=== PATIENT | female | born 2000 | race Caucasian/White ===

== ENCOUNTER 2025-04-06 18:49 | Inpatient (IN) ==
[2025-04-06 19:28] LABS: Hematocrit (blood only) 36.5 % (37.0-47.0); Hemoglobin 11.9 g/dl (12.0-16.0); Immature Granulocytes # (auto) 0.05 K/uL (0.01-0.20); Immature Granulocytes % (auto) 0.4 %; Mean Corpuscular Hemoglobin 27.9 pg (25.0-34.0); Mean Corpuscular Volume 85.5 fL (80.0-100.0); Platelet Count 227 K/uL (130-400); RDW Standard Deviation 41.3 fL (36.4-46.3); Red Blood Count 4.27 M/uL (4.20-5.40); White Blood Count 13.26 K/ul (4.8-10.8)
--- NOTE | 2025-04-06 19:42 | Emergency Department Note ---
Impression & Plan Hydronephrosis, Ureteral stone, Vomiting, Failure of outpatient treatment ED Provider Note NAME: VICTORINO DIMAS AGE: 25 SEX: F : 2000 ARRIVES VIA: Walk-In INFORMANT: [Patient][family] ED PROVIDER(S): [Morgan Avina MD] CHIEF COMPLAINT: Kidney pain HISTORY OF PRESENT ILLNESS: The patient is a 25-year-old female who was in our ED earlier today and diagnosed with a right ureteral stone. Her symptoms seemed controlled, there was no urinary infection. She was discharged home with medications for her symptoms. Patient states that despite the meds that she was prescribed, she is still vomiting, the pain is unbearable. She presents back for reevaluation. There has been no fever, no cough or cold or congestion. Her pain is similar to how it was earlier today when she first presented. She feels the pain primarily in the right flank with a slight radiation forward. PMHx/PSHx/Social Hx: See Below PHYSICAL EXAM: GENERAL: Patient is in mild distress from pain. HEENT: No acute trauma, normocephalic atraumatic, mucous membranes moist, no nasal congestion. NECK: No stridor, no adenopathy, no meningismus, trachea is midline. LUNGS: Clear to auscultation bilaterally, no wheeze, no rhonchi, breath sounds equal. HEART: Without murmurs gallops or rubs, regular rate and rhythm. ABDOMEN: Soft, nontender, no peritonitis. EXTREMITIES: No cyanosis, full range of motion of all the joints without pain or difficulty. NEUROLOGIC: Oriented x 3, no acute motor or sensory deficits, no focal weakness. SKIN: No jaundice, no diaphoresis. Back: Very mild right flank discomfort to percussion. DIFFERENTIAL DIAGNOSIS: Renal colic, UTI, hydronephrosis, dehydration, failed outpatient management, among others. EMERGENCY DEPARTMENT PROCEDURES: MEDICAL DECISION MAKING: There is a mild leukocytosis, this could be from infection or just her pain and vomiting. There was no worrisome anemia. There was a normal platelet count. No bandemia. No renal failure or significant electrolyte abnormality. No concerning liver enzyme elevation. testing was negative. Urinalysis showed ketones consistent with dehydration, some red blood cells were seen, no signs of infection. Looking at her CT and ultrasound imaging from earlier today, she does have a right sided ureteral stone with hydronephrosis. The patient received IV Dilaudid, IV Toradol, IV Zofran, IV Phenergan and IV saline. She is feeling improved. The patient presents with vomiting and flank pain. She has a right sided ureteral stone and she is not tolerating the pain outpatient. The medications prescribed earlier today are not controlling her symptoms. The patient is in need of a hospital stay, hydration, pain control and potential urology consult. I spoke with the patient and her mother, I spoke with case management. The on- call hospitalist was consulted. Prior/Outside records/notes reviewed: Today's ED visit note describing her presentation, findings and outpatient plan. Imaging/x-ray results per my interpretation: Chronic Medical/Social conditions affecting care: None Care/Management discussed with: Case management, the on-call hospitalist. Level of care consideration(s): After review of the information above and other included data: --I believe the patient requires escalation of care to admission DISPOSITION: Admission Past Med/Surg History Problem List Failure of outpatient treatment (Acute) Vomiting (Acute) Ureteral stone (Acute) Hydronephrosis (Acute) Calculus of kidney (Acute) Flank Pain (Acute) Dizziness (Acute) Left shoulder pain (Acute) Nausea (Acute) Medical History Dyslipidemia Mitral valve prolapse Surgical History [place] teeth extracted Family History Father Dyslipidemia Other Cancer Social History Smoking Status: Never smoker Hx Substance Use: No Preferred Language: South African Feels Safe at Home: Yes Allergies Allergies Allergy/AdvReac Type Severity Reaction Status Date / Time nickel AdvReac Intermediate red/itchy Unverified 04/06/25 20:40 morphine AdvReac Mild Nausea Unverified 04/06/25 20:40 codeine AdvReac Unknown Nausea and Verified 04/06/25 20:40 stomach pain fentanyl AdvReac Unknown Nausea and Verified 04/06/25 20:40 stomach pain Home Meds Home Medications Medication Instructions Recorded Confirmed pravastatin 20 mg tablet 20 mg PO HS 10/29/20 04/06/25 fluticasone propionate 50 2 spray intranasal DAILY PRN 04/06/25 04/06/25 mcg/actuation nasal allergies spray,suspension (Flonase Allergy Relief) Previous Rx's Medication Instructions Recorded ondansetron 4 mg disintegrating 4 mg PO Q8H PRN nausea and 04/06/25 tablet vomiting 5 days #15 tabs oxycodone 5 mg tablet 5 mg PO Q6H PRN pain #12 tabs 04/06/25 tamsulosin 0.4 mg capsule (Flomax) 0.4 mg PO DAILY #14 caps 04/06/25 Results & Data (ED) Vital Signs Vital Signs - 24 hr 04/06/25 18:55 Temperature 37.1 C Temperature Source Temporal Artery Scan Pulse Rate 94 H Respiratory Rate 19 Respiratory Effort / Characteristics Non-Labored Spontaneous Respiratory Depth Normal Respiratory Pattern Regular Blood Pressure 119/63 Blood Pressure Mean 81 Pulse Oximetry 99 Oxygen Delivery Method Room Air Sepsis Recent Fever Within 48 Hours No Sepsis New/Unexplained Change in Mental Status N/A Sepsis Action Taken by Nursing No Action Required Home Medications Current Medication List: was personally reviewed by me Laboratory Data Attestation: I reviewed the patient's lab results. 04/06/25 19:12 04/06/25 19:12 Lab Results 04/06/25 04/06/25 Range/Units 19:12 19:24 WBC 13.26 H (4.8-10.8) K/ul RBC 4.27 (4.20-5.40) M/uL Hgb 11.9 L (12.0-16.0) g/dl Hct 36.5 L (37.0-47.0) % MCV 85.5 (80.0-100.0) fL MCH 27.9 (25.0-34.0) pg MCHC 32.6 (32.0-36.0) g/dL RDW Std Deviation 41.3 (36.4-46.3) fL RDW Coeff of Taylor 13.3 (11.5-14.5) % Plt Count 227 (130-400) K/uL MPV 11.1 (9.4-12.4) fL Immature Gran % (Auto) 0.4 % Neut % (Auto) 76.8 % Lymph % (Auto) 12.0 % [place] % (Auto) 9.7 % Eos % (Auto) 0.7 % Baso % (Auto) 0.4 % Neut # (Auto) 10.19 H (1.40-6.50) K/uL Lymph # (Auto) 1.59 (1.20-3.40) K/uL [place] # (Auto) 1.29 H (0.11-0.59) K/uL Eos # (Auto) 0.09 (0.00-0.50) K/uL Baso # (Auto) 0.05 (0.00-0.20) K/uL Immature Gran # (Auto) 0.05 (0.01-0.20) K/uL Sodium 135 L (136-145) mmol/L Potassium 3.5 (3.5-5.1) mmol/L Chloride 104 (98-107) mmol/L Carbon Dioxide 23 (21-32) mmol/L Anion Gap 8 (3-11) BUN 17 (6-23) mg/dl Creatinine 0.93 (0.6-1.2) mg/dl Est Cr Clr Drug Dosing 72.1 ml/min eGFR 87.47 BUN/Creatinine Ratio 18.3 (10-20) Glucose 95 (70-99(Fasting)) mg/dl Calcium 8.4 L (8.6-10.3) mg/dl Total Bilirubin 0.6 (0.2-1.0) mg/dl AST 15 (13-39) U/L ALT 11 (7-52) U/L Alkaline Phosphatase 45 (34-104) U/L Total Protein 6.3 (6.0-8.3) gm/dl Albumin 4.0 (3.4-5.0) gm/dl Globulin 2.3 L (2.5-4.0) gm/dl Albumin/Globulin Ratio 1.7 (0.9-2) HCG, Qual Negative (Negative) Urine Color Yellow Urine Appearance Clear (Clear) Urine pH 5.5 (4.5-7.5) Ur Specific [place] 1.018 (1.000-1.030) Urine Protein Negative (Negative) Urine Glucose (UA) Negative (Negative) Urine Ketones 3+ H (Negative) Urine Blood 2+ H (Negative) Urine Nitrite Negative (Negative) Urine Bilirubin Negative (Negative) Urine Urobilinogen Negative (Negative) Ur Leukocyte Esterase Trace H (Negative) Urine WBC (Auto) 0-5 (0-5) /hpf Urine RBC (Auto) 11-20 H (0-2) /hpf U Hyaline Cast (Auto) 0-2 (0-2) /lpf U Epithel Cells (Auto) 0-2 (0-2) /hpf Urine Bacteria (Auto) None Seen (None Seen) Urine Comment Administered Medications Discontinued Medications Hydromorphone HCl (Hydromorphone Inj 0.5 Mg/0.5 Ml Syr) 0.5 mg IV NOW STA Stop: 04/06/25 19:37 Last Admin: 04/06/25 20:40 Dose: 0.5 mg Documented By: GAURAV Sodium Chloride (Nss) 1,000 mls @ 999 mls/hr IV .Q1H1M ONE Stop: 04/06/25 20:36 Last Admin: 04/06/25 20:41 Dose: 999 mls/hr Documented By: GAURAV Promethazine HCl (Phenergan) 6.25 mg in 50.25 mls @ 201 mls/hr IV NOW STA Stop: 04/06/25 19:50 Last Admin: 04/06/25 20:40 Dose: 201 mls/hr Documented By: GAURAV Ketorolac Tromethamine (Ketorolac Tromethamine 15 Mg/Ml Vial) 10 mg IV NOW ONE Stop: 04/06/25 19:37 Last Admin: 04/06/25 20:40 Dose: 10 mg Documented By: GAURAV Ondansetron HCl (Ondansetron Inj 2 Mg/Ml 2 Ml Vial) 4 mg IV NOW STA Stop: 04/06/25 19:37 Last Admin: 04/06/25 20:38 Dose: Not Given Documented By: GAURAV Imaging Data Radiologist's Impression: Patient: VICTORINO DIMAS Admit Date: 04/06/25 MR#: [id number] Address1: [address] [place] [address] Acct ID:[id number] Address2: Date: [address] [facility] Zip: [place] [address] Age: 25 Location: ED Sex: F Room/Bed: Att Phy: Diagnosis: RT SIDE/BACK PAIN, JAUNDACE Elif Phy: Doberstein, Jesus Alberto F., MD Service Date: 04/06/25 [facility] Phy: Interpreting Phy: Randy Soriano MDAdmit Phy: Ordering Phy: Travis Leiva PA-C cc: ~ EXAM: CT abd pelvis wo con CLINICAL HISTORY: right flank TECHNIQUE: Contiguous axial images were obtained from the level of the diaphragm to the pubic symphysis without intravenous or oral contrast. Coronal and sagittal reconstructions were likewise performed and indicated to increase the sensitivity for detecting clinically relevant pathology. CT scan was performed according to ALARA (as low as reasonable achievable). COMPARISON: oct 29 21:44:26 OCCUPATIONAL THERAPY PROFESSOR FINDINGS: The visualized lung bases are clear. Evaluation of the abdominal and pelvic visceral organs is limited without intravenous contrast. The unenhanced liver, spleen, pancreas, and adrenal glands are grossly unremarkable. The gallbladder is present. The kidneys are normal in size and attenuation Multiple patchy hyperdense areas are noted involving left renal cortex - largest measures about 18 x 10 mm Right side hydronephroureterosis. About 4 mm size radio opacity is noted along the course of right distal ureter- possibility right lower ureteric obstructive calculus- contrast urography correlation suggested. Right kidney shows few 2-3 mm sized calculi are noted in mid and lower calyx. No adenopathy or fluid collections are seen. No evidence of focal or diffuse bowel wall thickening or evidence of bowel obstruction is seen. The appendix is visualized in the right lower quadrant and appears within normal limits. The aorta is normal in caliber. The urinary bladder is normal in contour. Pelvic viscera are grossly unremarkable. No aggressive appearing osseous lesions are identified. Rest unchanged. IMPRESSION: 1. Multiple patchy hyperdense areas are noted involving left renal cortex -new finding - possibulity of hemorrhgic or proteinaceous cysts. Ultrasound / contrast study / MRI correlation is suggested for better evaluation. 2. Right side hydronephroureterosis. About 4 mm size radio opacity is noted along the course of right distal ureter- possibility right lower ureteric obstructive calculus- contrast urography correlation suggested.-new finding. 3. Right kidney shows few 2-3 mm sized calculi are noted in mid and lower calyx.-new finding. 4. FEcal loading with gaseous distension of the large bowel. Discharge Plan Visit Data Chief Complaint: Kidney Stone Stated Complaint: KIDNEY STONE PAIN SEVERE ED Provider: Morgan Avina Discharge Problem: Hydronephrosis, Ureteral stone, Vomiting, Failure of outpatient treatment Patient Disposition: Admitted As Inpatient Condition: Fair Forms Stand Alone Forms: My [facility] Prescriptions Prescriptions: No Action pravastatin 20 mg tablet 20 mg PO HS oxycodone 5 mg tablet 5 mg PO Q6H PRN (Reason: pain) Qty: 12 0RF ondansetron 4 mg tablet,disintegrating 4 mg PO Q8H PRN (Reason: nausea and vomiting) 5 Days Qty: 15 0RF tamsulosin [Flomax] 0.4 mg capsule 0.4 mg PO DAILY Qty: 14 0RF fluticasone propionate [Flonase Allergy Relief] 50 mcg/actuation [place],Suspension 2 spray INTRANASAL DAILY PRN (Reason: allergies) Referrals Referrals: Jesus Alberto Delgadillo MD [Primary Care Provider] - Discharge Problem: Hydronephrosis Qualifiers: Hydronephrosis type: with renal calculous obstruction Qualified Code(s): N13.2 - Hydronephrosis with renal and ureteral calculous obstruction Vomiting Qualifiers: Vomiting type: unspecified Nausea presence: with nausea Qualified Code(s): R 11.2 - Nausea with vomiting, unspecified
[2025-04-06 19:46] LABS: Alanine Aminotransferase 11.0 U/L (7-52); Albumin Globulin Ratio 1.7 (0.9-2); Alkaline Phosphatase 45.0 U/L (34-104); Anion Gap 8.0 (3-11); Bilirubin,Total 0.6 mg/dl (0.2-1.0); Blood Urea Nitrogen 17.0 mg/dl (6-23); Calcium 8.4 mg/dl (8.6-10.3); Carbon Dioxide 23.0 mmol/L (21-32); Chloride 104.0 mmol/L (98-107); Creatinine Clr Calc Pharmacy 72.1 ml/min; Globulin 2.3 gm/dl (2.5-4.0); Glucose 95.0 mg/dl (70-99(Fasting)); Potassium 3.5 mmol/L (3.5-5.1); Sodium 135.0 mmol/L (136-145); Total Protein 6.3 gm/dl (6.0-8.3)
[2025-04-06 19:49] LABS: Pregnancy Test, Serum Negative (Negative)
[2025-04-06 19:50] LABS: Appearance Urine Clear (Clear); Bacteria Urine Automated None Seen (None Seen); Cast Urine Automated 0-2 /lpf (0-2); Epithelial Cell Urine Auto 0-2 /hpf (0-2); Glucose Urine UA Negative (Negative); WBC Urine Automated 0-5 /hpf (0-5)
--- NOTE | 2025-04-06 20:21 | History & Physical Report ---
Date of Service April 06, 2025 Assessment & Plan (1) Ureteral stone: (2) Hydronephrosis: (3) Flank Pain: Plan: Patient is a 25-year-old female with PMH HLD, nonrheumatic mitral regurgitation presented to ER with complaint of right flank, right groin pain. Seen in ER earlier this morning dx with ureteral calculus and dchome on pain medicine and antiemetics. Patient returns this evening secondary to uncontrolled pain, nausea and vomiting. 04/06/25 CT Abd/pelvis: 1. Multiple patchy hyperdense areas are noted involving left renal cortex -new finding - possibility of hemorrhagic or proteinaceous cysts. Ultrasound / contrast study / MRI correlation is suggested for better evaluation. 2. Right side hydronephroureterosis. About 4 mm size radio opacity is noted along the course of right distal ureter- possibility right lower ureteric obstructive calculus- contrast urography correlation suggested.-new finding. 3. Right kidney shows few 2-3 mm sized calculi are noted in mid and lower calyx.-new finding. 4. Fecal loading with gaseous distension of the large bowel. 04/06/25 Renal US: 1. Right renal mild hydronephrosis and hydroureter. Obstructive uropathy. 2. Right renal parenchymal disease. The Mid and distal right ureter are not visualized due to overlying bowel gases. 3. Left renal cortical cysts. Tonight in ER afebrile, vitals stable WBC: 13. Possible from vomiting. Renal functions stable UA: 2+blood, trace leuk esterase, Negative nitrites, negative bacteria. Does not appear infected at this time, however will start empiric Rocephin. Urine culture pending -IVF -NPO -Antiemetics prn -Tylenol, Toradol, Dilaudid prn pain -Strain urine -Continue Flomax -Urology consult -CBC, BMP in am (4) Mitral valve prolapse: Plan: Outpatient chart review: 12/06/2023 echo: EF: 60-64%, mitral valve chordae are redundant. Mild bileaflet prolapse. Mild mitral regurgitation. Mild tricuspid regurgitation. No evidence of pulmonary hypertension Follows with [facility] cardiology (5) Dyslipidemia: Plan: Continue pravastatin DVT Prophylaxis SCDs Admit med surg Full Code as per discussion with pt Follows with Dr Delgadillo for routine care Pt was seen and care coordinated with Dr Baker. See addendum I spent a total of 50 minutes reviewing notes, outpatient records, labs, medication, coordinating, documenting and providing care for this patient excluding time spent in the performance of separately billed services and excluding time spent by another provider/QHP. History of Present Illness Chief Complaint: Flank pain Primary Care Provider: Jesus Alberto Delgadillo MD Patient is a 25-year-old female with PMH HLD, nonrheumatic mitral regurgitation presented to ER with complaint of right flank, right groin pain. Per chart rev iew patient was seen in ER earlier this morning diagnosed with ureteral calculus and discharged home on pain medicine and antiemetics. Patient returns this evening secondary to uncontrolled pain, nausea and vomiting. Denies fever/chills, hematemesis, melena, hematochezia, diarrhea, constipation, FRANK, dizziness, syncope, CP, SOB, cough, paresthesias, weakness, extremity edema, rashes, dysuria, hematuria. Allergies Allergy/AdvReac Type Severity Reaction Status Date / Time nickel AdvReac Intermediate red/itchy Unverified 04/06/25 20:40 morphine AdvReac Mild Nausea Unverified 04/06/25 20:40 codeine AdvReac Unknown Nausea and Verified 04/06/25 20:40 stomach pain fentanyl AdvReac Unknown Nausea and Verified 04/06/25 20:40 stomach pain Home Medications Medication Instructions Recorded Confirmed Type pravastatin 20 mg tablet 20 mg PO HS 10/29/20 04/06/25 History fluticasone propionate 50 2 spray intranasal DAILY PRN 04/06/25 04/06/25 History mcg/actuation nasal allergies spray,suspension (Flonase Allergy Relief) ondansetron 4 mg disintegrating 4 mg PO Q8H PRN nausea and 04/06/25 04/06/25 Rx tablet vomiting 5 days #15 tabs oxycodone 5 mg tablet 5 mg PO Q6H PRN pain #12 tabs 04/06/25 04/06/25 Rx tamsulosin 0.4 mg capsule (Flomax) 0.4 mg PO DAILY #14 caps 04/06/25 04/06/25 Rx Past Med/Surg History Problem List Failure of outpatient treatment (Acute) Vomiting (Acute) Ureteral stone (Acute) Hydronephrosis (Acute) Calculus of kidney (Acute) Flank Pain (Acute) Dizziness (Acute) Left shoulder pain (Acute) Nausea (Acute) Medical History Dyslipidemia Mitral valve prolapse Surgical History [place] teeth extracted Family History Father Dyslipidemia Other Cancer Social History Smoking Status: Never smoker Hx Substance Use: No Preferred Language: Frisian Feels Safe at Home: Yes Review of Systems Review of Systems: All systems reviewed & are unremarkable except as noted in HPI & below Physical Exam Physical Exam: General: +mild distress secondary to right flank pain, WDWN Head: normocephalic, atraumatic Eyes: conjunctiva non-injected, anicteric ENT: normal inspection external ears, nose, mucous membranes moist Neck: supple, trachea midline Lungs: clear, no respiratory distress, no wheezing/rhonchi/rales CV: RRR, no murmur, no pretibial edema Abd: normal BS, soft, +right flank tenderness to palpation, otherwise abdomen non-tender Ext: no cyanosis, no calf tenderness Neuro: A&O x 3, no focal deficits noted, normal affect Skin: warm, dry Results & Data Results & Data Vital Signs (Past 12 Hours) Vital Signs Temp Pulse Resp BP Pulse Ox O2 Del Method 04/06/25 18:55 37.1 C 94 H 19 119/63 99 Room Air Laboratory Results Short CBC 04/06/25 Range/Units 19:12 WBC 13.26 H (4.8-10.8) K/ul Hgb 11.9 L (12.0-16.0) g/dl Hct 36.5 L (37.0-47.0) % Plt Count 227 (130-400) K/uL BMP 04/06/25 19:12 Sodium 135 L Potassium 3.5 Chloride 104 Carbon Dioxide 23 BUN 17 Creatinine 0.93 Glucose 95 Calcium 8.4 L Liver Function 04/06/25 Range/Units 19:12 Total Bilirubin 0.6 (0.2-1.0) mg/dl AST 15 (13-39) U/L ALT 11 (7-52) U/L Alkaline Phosphatase 45 (34-104) U/L Albumin 4.0 (3.4-5.0) gm/dl Urine 04/06/25 Range/Units 19:24 Urine Color Yellow Urine Appearance Clear (Clear) Urine pH 5.5 (4.5-7.5) Ur Specific [place] 1.018 (1.000-1.030) Urine Protein Negative (Negative) Urine Glucose (UA) Negative (Negative) Supervising Physician Co-Signing Physician Notes Pt seen and examined in the ED with her mother present. Her pain is under better control. Still with nausea. I agree with the SHERYL medical plan as outlined above. A total of 13 minutes spent in examination and review of the data and chart (2) Hydronephrosis Hydronephrosis type: with renal calculous obstruction Qualified Code(s): N13.2 - Hydronephrosis with renal and ureteral calculous obstruction
[2025-04-06] MEDS: ONDANSETRON INJ 2 MG/ML 2 ML VIAL IV STA (20:38)
[2025-04-06] MEDS: PROMETHAZINE 6.25 MG/50.25 ML BAG IV STA (20:40)
[2025-04-06] MEDS: KETOROLAC TROMETHAMINE 15 MG/ML VIAL IV ONE (20:40)
[2025-04-06] MEDS: HYDROmorphone INJ 0.5 MG/0.5 ML SYR IV STA (20:40)
[2025-04-06] MEDS: SODIUM CHLORIDE 0.9% 1,000 ML IV ONE (20:41)
[2025-04-06] MEDS ORDERED: PROMETHAZINE 6.25 MG/50.25 ML BAG IV PRN (22:22)
[2025-04-06] MEDS ORDERED: ACETAMINOPHEN 1,000 MG/100 ML VIAL IV PRN (22:22)
[2025-04-06] MEDS ORDERED: ONDANSETRON INJ 2 MG/ML 2 ML VIAL IV PRN (22:22)
[2025-04-06] MEDS ORDERED: MAGNESIUM HYDROXIDE SUSP 30 ML UDC PO PRN (22:22)
[2025-04-06] MEDS ORDERED: POLYETHYLENE (MIRALAX) 17 GM PACK PO PRN (22:22)
[2025-04-06] MEDS ORDERED: HYDROmorphone INJ 0.5 MG/0.5 ML SYR IV PRN (22:22)
[2025-04-06] MEDS: D5NSS + 20MEQ KCL 20 MEQ/1,000 ML BAG IV SCH (23:51)
[2025-04-06] MEDS: cefTRIAXone SODIUM 2,000 MG/50 ML BAG IV STA (23:51)
[2025-04-07 07:41] LABS: Hematocrit (blood only) 30.4 % (37.0-47.0); Hemoglobin 10.2 g/dl (12.0-16.0); Immature Granulocytes # (auto) 0.03 K/uL (0.01-0.20); Immature Granulocytes % (auto) 0.3 %; Mean Corpuscular Hemoglobin 28.8 pg (25.0-34.0); Mean Corpuscular Volume 85.9 fL (80.0-100.0); Platelet Count 184 K/uL (130-400); RDW Standard Deviation 41.5 fL (36.4-46.3); Red Blood Count 3.54 M/uL (4.20-5.40); White Blood Count 9.23 K/ul (4.8-10.8)
--- NOTE | 2025-04-07 07:57 | Urology Consultation ---
Date of Consultation April 07, 2025 Assessment & Plan (1) Ureteral stone: (2) Hydronephrosis: (3) Flank Pain: Plan 25-year-old female admitted with intractable pain with associated nausea and vomiting secondary to an obstructing distal right ureteral stone She is afebrile, mildly hypotensive, otherwise stable vitals. Labs show no leukocytosis and normal renal function. Urinalysis shows 2+ blood, trace LE, negative bacteria, negative nitrite. We discussed options for acute stone management with cystoscopy, stent placement, possible stone treatment. Ureteral stents were discussed as well as postoperative issues and pain management. She is aware a second procedure may b e needed for stone treatment. Also discussed trial of passage with max expulsion therapy. Reviewed stone passage rates given size and location. Risks and benefits of each were discussed. All questions were answered. Plan for OR today for cystoscopy, right retrograde pyelogram, right ureteral stent placement, possible ureteroscopy, laser lithotripsy/stone treatment. Risks/benefits to be reviewed with patient by Dr. Puente. Keep NPO. She is covered with scheduled IV ceftriaxone. Urology will follow. History of Present Illness Attending Physician: Carlos Simons MD History of Present Illness 25-year-old female with PMH HLD, nonrheumatic mitral regurgitation who was initially seen in the ED on 04/06/2025 for right sided pain. She was diagnosed with a right ureteral calculus. CT abdomen pelvis demonstrated obstructing 4 mm distal right ureteral stone with additional stones in the right kidney as well as left renal cysts. She was discharged home for trial of passage with analgesics and antiemetics. She returned to the ED secondary to uncontrolled pain with associated nausea and vomiting. She is admitted to medicine service. Patient seen at bedside today. She is awake and resting in bed on arrival. No acute distress. Has been NPO. Parents at bedside. Allergies Allergy/AdvReac Type Severity Reaction Status Date / Time nickel AdvReac Intermediate red/itchy Unverified 04/06/25 20:40 morphine AdvReac Mild Nausea Unverified 04/06/25 20:40 codeine AdvReac Unknown Nausea and Verified 04/06/25 20:40 stomach pain fentanyl AdvReac Unknown Nausea and Verified 04/06/25 20:40 stomach pain Home Medications Medication Instructions Recorded Confirmed Type pravastatin 20 mg tablet 20 mg PO HS 10/29/20 04/06/25 History fluticasone propionate 50 2 spray intranasal DAILY PRN 04/06/25 04/06/25 History mcg/actuation nasal allergies spray,suspension (Flonase Allergy Relief) ondansetron 4 mg disintegrating 4 mg PO Q8H PRN nausea and 04/06/25 04/06/25 Rx tablet vomiting 5 days #15 tabs oxycodone 5 mg tablet 5 mg PO Q6H PRN pain #12 tabs 04/06/25 04/06/25 Rx tamsulosin 0.4 mg capsule (Flomax) 0.4 mg PO DAILY #14 caps 04/06/25 04/06/25 Rx Patient History Medical History Dyslipidemia Mitral valve prolapse Surgical History [place] teeth extracted Family History Father Dyslipidemia Other Cancer Social History Smoking Status: Never smoker Second Hand Exposure: No; Do You Dip or Chew Tobacco: No; Tobacco Cessation Education Requested by Patient: No Hx Alcohol Use: Yes Alcohol type: wine Hx Substance Use: No Preferred Language: Montserratian Communication Ability: Effective 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 Other Information That Helps Us Care for You: No Feels Safe at Home: Yes Safety Concerns: Feels Safe At This Time Assistive Devices: None Review of Systems Review of Systems: All systems reviewed & are unremarkable except as noted in HPI & below Physical Exam Constitutional: no acute distress Respiratory: no respiratory distress and no labored breathing Skin: No visible rashes or lesions to exposed skin areas Neurologic: moves all extremities and awake Psychiatric: A+Ox3, euthymic affect Results & Data Vital Signs (Past 12 Hours) Vital Signs Temp Pulse Pulse Resp BP BP Pulse Ox 04/07/25 07:11 36.7 C 87 16 85/50 L 97 04/06/25 22:15 36.7 C 81 16 95/62 L 97 04/06/25 22:15 36.7 C 81 16 95/62 L 97 04/06/25 22:00 106/65 04/06/25 22:00 106/65 04/06/25 22:00 04/06/25 21:45 73 16 98 04/06/25 21:39 74 16 97 04/06/25 21:18 80 18 99 04/06/25 21:06 74 13 97 04/06/25 21:00 99/65 L 04/06/25 21:00 99/65 L 04/06/25 21:00 99/65 L 04/06/25 20:55 82 04/06/25 20:50 82 21 94/60 L 97 O2 Del Method 04/07/25 07:11 Room Air 04/06/25 22:15 Room Air 04/06/25 22:15 Room Air 04/06/25 22:00 04/06/25 22:00 04/06/25 22:00 Room Air 04/06/25 21:45 04/06/25 21:39 04/06/25 21:18 04/06/25 21:06 04/06/25 21:00 04/06/25 21:00 04/06/25 21:00 04/06/25 20:55 04/06/25 20:50 Room Air PG Care Time/CCT Total # of Minutes Spent Total Time Spent with Patient: Total time spent is greater than 50% in coordination of care (as documented) at patient's floor/unit and/or counseling patient: Coding Level of Care Code 53433 IN/OBS CONSULT LVL 4,60M Diagnoses Ureteral stone N20.1 Hydronephrosis N13.2 Hydronephrosis type: with renal calculous obstruction Flank Pain R10.9 (2) Hydronephrosis Hydronephrosis type: with renal calculous obstruction Qualified Code(s): N13.2 - Hydronephrosis with renal and ureteral calculous obstruction
[2025-04-07 07:59] LABS: Anion Gap 2.0 (3-11); Blood Urea Nitrogen 10.0 mg/dl (6-23); Calcium 7.8 mg/dl (8.6-10.3); Carbon Dioxide 26.0 mmol/L (21-32); Chloride 112.0 mmol/L (98-107); Creatinine Clr Calc Pharmacy 101.4 ml/min; Glucose 104.0 mg/dl (70-99(Fasting)); Potassium 4.0 mmol/L (3.5-5.1); Sodium 140.0 mmol/L (136-145)
--- NOTE | 2025-04-07 08:15 | Hospitalist Progress Note ---
Date of Service April 07, 2025 Assessment & Plan (1) Ureteral stone: (2) Hydronephrosis: (3) Flank Pain: Plan: Patient is a 25-year-old female with PMH HLD, nonrheumatic mitral regurgitation presented to ER with complaint of right flank, right groin pain. Seen in ER earlier this morning dx with ureteral calculus and dchome on pain medicine and antiemetics. Patient returns this evening secondary to uncontrolled pain, nausea and vomiting. 04/06/25 CT Abd/pelvis: 1. Multiple patchy hyperdense areas are noted involving left renal cortex -new finding - possibility of hemorrhagic or proteinaceous cysts. Ultrasound / contrast study / MRI correlation is suggested for better evaluation. 2. Right side hydronephroureterosis. About 4 mm size radio opacity is noted along the course of right distal ureter- possibility right lower ureteric obstructive calculus- contrast urography correlation suggested.-new finding. 3. Right kidney shows few 2-3 mm sized calculi are noted in mid and lower calyx.-new finding. 4. Fecal loading with gaseous distension of the large bowel. 04/06/25 Renal US: 1. Right renal mild hydronephrosis and hydroureter. Obstructive uropathy. 2. Right renal parenchymal disease. The Mid and distal right ureter are not visualized due to overlying bowel gases. 3. Left renal cortical cysts. Tonight in ER afebrile, vitals stable WBC: 13. Possible from vomiting. Renal functions stable UA: 2+blood, trace leuk esterase, Negative nitrites, negative bacteria. Does not appear infected at this time, however will start empiric Rocephin. Urine culture pending -IVF -NPO -Antiemetics prn -Tylenol, Toradol, Dilaudid prn pain -Strain urine -Continue Flomax -Urology consulted - plan for OR today -CBC, BMP in am (4) Mitral valve prolapse: Plan: Outpatient chart review: 12/06/2023 echo: EF: 60-64%, mitral valve chordae are redundant. Mild bileaflet prolapse. Mild mitral regurgitation. Mild tricuspid regurgitation. No evidence of pulmonary hypertension Follows with [facility] cardiology (5) Dyslipidemia: Plan: Continue pravastatin DVT Prophylaxis SCDs Admit med surg Full Code as per discussion with pt Follows with Dr Delgadillo for routine care Admission and Anticipated Discharge Date Admission Date: April 06, 2025 Subjective Pt seen in follow up f flank pain, vomiting, found to have ureteral stone Urology consulted and plan for OR - stent placement today Currently lying down in NAD, parents present at the bedside No fever, chills, chest pain or shortness of breath, no abd. pain, n/v Cont. to have flank pain , lower abd.pain but tolerable at this time Review of Systems Review of Systems: All systems reviewed & are unremarkable except as noted in Subjective Physical Exam Physical Exam: General: +mild distress secondary to right flank pain, WDWN Head: normocephalic, atraumatic Eyes: conjunctiva non-injected, anicteric ENT: normal inspection external ears, nose, mucous membranes moist Neck: supple Lungs: clear, no respiratory distress, no wheezing/rhonchi/rales CV: RRR, no murmur, no pretibial edema Abd: normal BS, soft, +right flank tenderness to palpation, otherwise abdomen non-tender Ext: no LE edema, moves extremities Neuro: A&O x 3, no focal deficits noted, normal affect Skin: warm, dry Results & Data Results & Data Vital Signs (Past 12 Hours) Vital Signs Temp Pulse Pulse Resp BP BP Pulse Ox 04/07/25 08:00 04/07/25 07:11 36.7 C 87 16 85/50 L 97 04/06/25 22:15 36.7 C 81 16 95/62 L 97 04/06/25 22:15 36.7 C 81 16 95/62 L 97 04/06/25 22:00 106/65 04/06/25 22:00 106/65 04/06/25 22:00 04/06/25 21:45 73 16 98 04/06/25 21:39 74 16 97 04/06/25 21:18 80 18 99 04/06/25 21:06 74 13 97 04/06/25 21:00 99/65 L 04/06/25 21:00 99/65 L 04/06/25 21:00 99/65 L 04/06/25 20:55 82 04/06/25 20:50 82 21 94/60 L 97 O2 Del Method 04/07/25 08:00 Room Air 04/07/25 07:11 Room Air 04/06/25 22:15 Room Air 04/06/25 22:15 Room Air 04/06/25 22:00 04/06/25 22:00 04/06/25 22:00 Room Air 04/06/25 21:45 04/06/25 21:39 04/06/25 21:18 04/06/25 21:06 04/06/25 21:00 04/06/25 21:00 04/06/25 21:00 04/06/25 20:55 04/06/25 20:50 Room Air Laboratory Results 04/07/25 04/06/25 04/06/25 Range/Units 07:19 19:24 19:12 WBC 9.23 13.26 H (4.8-10.8) K/ul RBC 3.54 L 4.27 (4.20-5.40) M/uL Hgb 10.2 L 11.9 L (12.0-16.0) g/dl Hct 30.4 L 36.5 L (37.0-47.0) % MCV 85.9 85.5 (80.0-100.0) fL MCH 28.8 27.9 (25.0-34.0) pg MCHC 33.6 32.6 (32.0-36.0) g/dL RDW Std Deviation 41.5 41.3 (36.4-46.3) fL RDW Coeff of Taylor 13.2 13.3 (11.5-14.5) % Plt Count 184 227 (130-400) K/uL MPV 11.4 11.1 (9.4-12.4) fL Immature Gran % (Auto) 0.3 0.4 % Neut % (Auto) 62.8 76.8 % Lymph % (Auto) 25.9 12.0 % [place] % (Auto) 10.0 9.7 % Eos % (Auto) 0.7 0.7 % Baso % (Auto) 0.3 0.4 % Neut # (Auto) 5.80 10.19 H (1.40-6.50) K/uL Lymph # (Auto) 2.39 1.59 (1.20-3.40) K/uL [place] # (Auto) 0.92 H 1.29 H (0.11-0.59) K/uL Eos # (Auto) 0.06 0.09 (0.00-0.50) K/uL Baso # (Auto) 0.03 0.05 (0.00-0.20) K/uL Immature Gran # (Auto) 0.03 0.05 (0.01-0.20) K/uL Sodium 140 135 L (136-145) mmol/L Potassium 4.0 3.5 (3.5-5.1) mmol/L Chloride 112 H 104 (98-107) mmol/L Carbon Dioxide 26 23 (21-32) mmol/L Anion Gap 2 L 8 (3-11) BUN 10 17 (6-23) mg/dl Creatinine 0.66 0.93 (0.6-1.2) mg/dl Est Cr Clr Drug Dosing 101.4 72.1 ml/min eGFR 124.77 87.47 BUN/Creatinine Ratio 15.2 18.3 (10-20) Glucose 104 H 95 (70-99(Fasting)) mg/dl Calcium 7.8 L 8.4 L (8.6-10.3) mg/dl Total Bilirubin 0.6 (0.2-1.0) mg/dl AST 15 (13-39) U/L ALT 11 (7-52) U/L Alkaline Phosphatase 45 (34-104) U/L Total Protein 6.3 (6.0-8.3) gm/dl Albumin 4.0 (3.4-5.0) gm/dl Globulin 2.3 L (2.5-4.0) gm/dl Albumin/Globulin Ratio 1.7 (0.9-2) HCG, Qual Negative (Negative) Urine Color Yellow Urine Appearance Clear (Clear) Urine pH 5.5 (4.5-7.5) Ur Specific [place] 1.018 (1.000-1.030) Urine Protein Negative (Negative) Urine Glucose (UA) Negative (Negative) Urine Ketones 3+ H (Negative) Urine Blood 2+ H (Negative) Urine Nitrite Negative (Negative) Urine Bilirubin Negative (Negative) Urine Urobilinogen Negative (Negative) Ur Leukocyte Esterase Trace H (Negative) Urine WBC (Auto) 0-5 (0-5) /hpf Urine RBC (Auto) 11-20 H (0-2) /hpf U Hyaline Cast (Auto) 0-2 (0-2) /lpf U Epithel Cells (Auto) 0-2 (0-2) /hpf Urine Bacteria (Auto) None Seen (None Seen) Urine Comment Medications Administered Current Inpatient Medications Acetaminophen (Acetaminophen 325 Mg Tab) 650 mg PO Q4H PRN PRN Reason: pain/fever Stop: 05/06/25 22:21 Hydromorphone HCl (Hydromorphone Inj 0.5 Mg/0.5 Ml Syr) 0.5 mg IV Q6H PRN PRN Reason: Severe Pain (Scale 7, 8, 9,10) Stop: 04/20/25 22:21 Potassium Chloride/Dextrose/Sod Cl (D5nss + 20meq Kcl) 20 meq in 1,000 mls @ 100 mls/hr IV .Q10H RAVEN Stop: 04/07/25 18:44 Last Admin: 04/06/25 23:51 Dose: 100 mls/hr Acetaminophen (Ofirmev) 1,000 mg in 100 mls @ 400 mls/hr IV Q8H PRN PRN Reason: Pain or Fever Stop: 04/07/25 22:21 Ceftriaxone Sodium (Rocephin) 2,000 mg in 50 mls @ 100 mls/hr IV Q24H RAVEN Stop: 04/09/25 21:59 Promethazine HCl (Phenergan) 6.25 mg in 50.25 mls @ 201 mls/hr IV Q6H PRN PRN Reason: Nausea And Vomiting Stop: 05/06/25 22:21 Ketorolac Tromethamine (Ketorolac Tromethamine 15 Mg/Ml Vial) 15 mg IV Q6H PRN PRN Reason: Moderate Pain (Scale 4, 5, 6) Stop: 04/08/25 22:21 Magnesium Hydroxide (Magnesium Hydroxide Susp 30 Ml Udc) 30 ml PO Q6H PRN PRN Reason: Constipation Stop: 05/06/25 22:21 Ondansetron HCl (Ondansetron Inj 2 Mg/Ml 2 Ml Vial) 4 mg IV Q6H PRN PRN Reason: Nausea Stop: 05/06/25 22:21 Polyethylene Glycol (Polyethylene (Miralax) 17 Gm Pack) 17 gm PO DAILY PRN PRN Reason: Constipation Stop: 05/06/25 22:21 Pravastatin Sodium (Pravastatin Sod 20 Mg Tab) 20 mg PO HS [facility] Stop: 05/07/25 20:59 Tamsulosin HCl (Tamsulosin Hcl 0.4 Mg Cap) 0.4 mg PO DAILY RAVEN Stop: 05/07/25 08:59 (2) Hydronephrosis Hydronephrosis type: with renal calculous obstruction Qualified Code(s): N13.2 - Hydronephrosis with renal and ureteral calculous obstruction
[2025-04-07] MEDS: TAMSULOSIN HCL 0.4 MG CAP PO SCH (08:19)
--- NOTE | 2025-04-07 14:07 | Anesthesiology Consultation ---
Date of Service April 07, 2025 Assessment & Plan (1) Encounter for pre-operative examination: Chart Review Chart Review: Acceptable Risk for Surgery History Surgery Operation Date: 04/07/25 12:00 Proposed Procedures p Cystoscopy Right Retrograde Pyelogram, Stent Placement, Possible Ureteroscopy, Laser Lithotripsy Stone Treatment - David Puente MD Height/Weight Height: 5 ft 4 in Weight: 49.3 kg Allergies Allergy/AdvReac Type Severity Reaction Status Date / Time nickel AdvReac Intermediate red/itchy Unverified 04/06/25 20:40 morphine AdvReac Mild Nausea Unverified 04/06/25 20:40 codeine AdvReac Unknown Nausea and Verified 04/06/25 20:40 stomach pain fentanyl AdvReac Unknown Nausea and Verified 04/06/25 20:40 stomach pain Medications Home Medications Medication Instructions Recorded Confirmed Last Taken pravastatin 20 mg tablet 20 mg PO HS 10/29/20 04/06/25 04/05/25 fluticasone propionate 50 2 spray intranasal DAILY PRN 04/06/25 04/06/25 Unknown mcg/actuation nasal allergies spray,suspension (Flonase Allergy Relief) ondansetron 4 mg disintegrating 4 mg PO Q8H PRN nausea and 04/06/25 04/06/25 Unknown tablet vomiting 5 days #15 tabs oxycodone 5 mg tablet 5 mg PO Q6H PRN pain #12 tabs 04/06/25 04/06/25 Unknown tamsulosin 0.4 mg capsule (Flomax) 0.4 mg PO DAILY #14 caps 04/06/25 04/06/25 Unknown Active Medications Generic Name Dose Route Start Last Admin Trade Name Freq PRN Reason Stop Dose Admin Potassium Chloride/Dextrose/Sod Cl 20 meq in 1,000 mls @ 100 mls/hr 04/06/25 22:45 04/07/25 09:01 D5nss + 20meq Kcl IV 04/07/25 18:44 100 mls/hr .Q10H RAVEN Administration Tamsulosin HCl 0.4 mg 04/07/25 09:00 04/07/25 08:19 Tamsulosin Hcl 0.4 Mg Cap PO 05/07/25 08:59 Not Given DAILY RAVEN NPO Date Last Intake of Fluids: 04/06/25 Time Last Intake of Fluids: 23:59 Date Last Intake of Solids: 04/06/25 Time Last Intake of Solids: 23:59 Past Medical History Medical History (Updated 04/07/25 @ 14:07 by Jann Barry MD) Dizziness Hydronephrosis Dyslipidemia Mitral valve prolapse Past Family History Family History Father Dyslipidemia Other Cancer Past Surgical History Surgical History Aniwa teeth extracted Social History Smoking Status: Never smoker Do You Dip or Chew Tobacco: No Hx Alcohol Use: Yes Alcohol type: wine alcohol intake frequency: holidays/special occasions only Hx Substance Use: No substance use type: does not use Physical Exam Vital Signs Last Vital Signs Temp 36.7 C 04/07/25 07:11 Pulse 87 04/07/25 07:11 Resp 16 04/07/25 07:11 BP 85/50 L 04/07/25 07:11 Pulse Ox 97 04/07/25 07:11 O2 Del Method Room Air 04/07/25 08:00 Testing Laboratory Results 04/07/25 07:19 04/07/25 07:19 Urine Color Yellow 04/06/25 19:24 Urine Appearance Clear (Clear) 04/06/25 19:24 Urine pH 5.5 (4.5-7.5) 04/06/25 19:24 Ur Specific [place] 1.018 (1.000-1.030) 04/06/25 19:24 Urine Protein Negative (Negative) 04/06/25 19:24 Urine Glucose (UA) Negative (Negative) 04/06/25 19:24 Urine Ketones 3+ (Negative) H 04/06/25 19:24 Urine Nitrite Negative (Negative) 04/06/25 19:24 Ur Leukocyte Esterase Trace (Negative) H 04/06/25 19:24 Urine WBC (Auto) 0-5 /hpf (0-5) 04/06/25 19:24 Urine RBC (Auto) 11-20 /hpf (0-2) H 04/06/25 19:24 U Hyaline Cast (Auto) 0-2 /lpf (0-2) 04/06/25 19:24 U Epithel Cells (Auto) 0-2 /hpf (0-2) 04/06/25 19:24 Urine Bacteria (Auto) None Seen (None Seen) 04/06/25 19:24
[2025-04-07] MEDS ORDERED: MIDAZOLAM HCL 1 MG/ML 2ML VIAL ONE (14:17)
[2025-04-07] MEDS ORDERED: PROPOFOL IV EMULSION 10 MG/ML 20 ML VIAL IV ONE ×4 (14:17→15:32)
[2025-04-07] MEDS ORDERED: DEXAMETHASONE SOD INJ 4 MG/ML VIAL ONE ×2 (14:17→15:14)
[2025-04-07] MEDS ORDERED: ONDANSETRON INJ 2 MG/ML 2 ML VIAL ONE (14:17)
[2025-04-07] MEDS ORDERED: LIDOCAINE 2% 2 ML VIAL/AMP(20MG/ML) INFIL ONE (14:17)
[2025-04-07] MEDS: LACTATED RINGER'S 1,000 ML IV SCH (14:51)
[2025-04-07] MEDS ORDERED: PROMETHAZINE HCL 6.25 MG in SODIUM CHLORIDE 0.9% 50 ML IV PRN (14:56)
[2025-04-07] MEDS ORDERED: ATROPINE SULFATE 0.1 MG/ML 10ML SYR IV PRN (14:56)
[2025-04-07] MEDS ORDERED: DexMEDEtomidine HCL IV 100 MCG/ML VIAL IV ONE (15:02)
--- NOTE | 2025-04-07 15:46 | Operative Report ---
PG Post Operative Report Pre & Post Diagnosis Operation Date: 04/07/25 12:00 Pre-Op Diagnosis: Ureteral stone, Hydronephrosis, Flank Pain Post-Op Diagnosis: Kidney stone; ureteral stone; hydronephrosis I identified the patient and participated in the time-out.: Yes Procedure Operation Date: 04/07/25 12:00 Actual Procedures p Cystoscopy, Right Stent Placement, Ureteroscopy, Laser Lithotripsy Stone Treatment(Right) - David Puente MD Surgeon David Puente MD Finance Specialist none Estimated Blood Loss 0 Findings Consistent with Post-Op Diagnosis Specimens none Description of Procedure The patient was identified in the preoperative holding area, appropriate informed consents were reviewed and completed and the patient was transferred to the operative suite. Upon arrival, appropriate antibiotics and anesthesia were administered and the patient was placed in dorsal lithotomy position and prepped and draped in sterile fashion. Begin the case I passed a 21 Lao cystoscope per urethra. Full spectrum of the bladder was conducted revealing healthy appearing bladder with no mucosal abnormalities. There was some edema and minimal erythema around the right UO consistent with a distal ureteral stone or recently passed stone. There were no stones within the bladder. Following my full inspection return my attention to the right UO and cannulated with a sensor wire which advanced the kidney without difficulty. I then reentered the bladder and ultimately the right ureter with the semirigid ureteroscope. I visualize no stones in the distal ureter although I could see the site of prior impaction/obstruction. I advanced the scope maximally and reached the UPJ. I still encountered no other stones and hydronephrosis was relatively mild. I placed a second wire through the ureteroscope and then withdrew it. I advanced a flexible ureteroscope and performed full renoscopy. I inspected on multiple occasions. There was some old clot in the posterior calyces of her kidney and I probed through this clot with a 200 m laser fiber to rule out the possibility that the stone had moved retrograde into the kidney. I identified no large stones. Within the clot. She has 2 smaller stones that were adherent to renal papillae within the posterior calyces. I used the laser to treat the stones entirely. I then repeated renoscopy again before performing another careful exit ureteroscopy. I encountered no stone along the course of the ureter or within the kidney. There was no fluoroscopic evidence of an opacity along the course of the ureter. My presumption is that she must of passed the distal ureteral stone shortly prior to this procedure. We concluded the case with placing a 6 Lao by 24 cm double-J stent leaving a string attached. I think would be very reasonable to remove her stent tomorrow presuming she feels well. She was reversed of anesthesia and taken to the recovery room in stable condition. There were no complications. I attest to the content of the Intraoperative Record and any orders documented therein. Any exceptions are noted below.
--- NOTE | 2025-04-07 15:58 | Fluoroscopy Report ---
FL KUB CLINICAL HISTORY: RT SIDE STENT PLACEMENT COMPARISON STUDY: CT 04/06/2025 FLUOROSCOPY TIME: 17.8 seconds FLUOROSCOPY IMAGES: 1 EXPOSURE DOSE: 2.41 mGy FINDINGS: Proximal portion of a right ureteral stent appears to be within satisfactory position, dist al portion not imaged. IMPRESSION: Fluoroscopic assistance as above. ACT 112: Negative or not required by law. Electronically signed by: Anthony Cantrell M.D. 04/07/2025 3:57 PM
--- NOTE | 2025-04-07 16:12 | Anesthesiology Progress Note ---
Date of Service April 07, 2025 Anesthesia Post Procedure Vital Signs Vital Signs: Temp Pulse Pulse Pulse Resp BP BP 04/07/25 16:05 56 L 18 98/63 L 04/07/25 15:56 36.5 C 65 17 93/61 L 04/07/25 14:47 37.2 C 97 H 20 04/07/25 14:18 76 16 04/07/25 08:00 04/07/25 07:11 36.7 C 87 16 04/06/25 22:15 36.7 C 81 16 04/06/25 22:15 36.7 C 81 16 04/06/25 22:00 106/65 04/06/25 22:00 106/65 04/06/25 22:00 04/06/25 21:45 73 16 04/06/25 21:39 74 16 04/06/25 21:18 80 18 04/06/25 21:06 74 13 04/06/25 21:00 99/65 L 04/06/25 21:00 99/65 L 04/06/25 21:00 99/65 L 04/06/25 20:55 82 04/06/25 20:50 82 21 04/06/25 18:55 37.1 C 94 H 19 119/63 BP Pulse Ox O2 Del Method O2 Flow Rate 04/07/25 16:05 100 Oxymask 4 04/07/25 15:56 100 Oxymask 6 04/07/25 14:47 132/82 99 Room Air 04/07/25 14:18 153/82 H 100 Room Air 04/07/25 08:00 Room Air 04/07/25 07:11 85/50 L 97 Room Air 04/06/25 22:15 95/62 L 97 Room Air 04/06/25 22:15 95/62 L 97 Room Air 04/06/25 22:00 04/06/25 22:00 04/06/25 22:00 Room Air 04/06/25 21:45 98 04/06/25 21:39 97 04/06/25 21:18 99 04/06/25 21:06 97 04/06/25 21:00 04/06/25 21:00 04/06/25 21:00 04/06/25 20:55 04/06/25 20:50 94/60 L 97 Room Air 04/06/25 18:55 99 Room Air Pain Intensity Lower Back: Pain Intensity: 3 Transfer of Care Handoff Completed per policy Notes Mental Status: alert / awake / arousable Patient Amnestic to Procedure: Yes Nausea / Vomiting: adequately controlled Pain: adequately controlled Airway Patency, RR, SpO2: stable & adequate BP & HR: stable & adequate Hydration State: stable & adequate Anesthetic Complications: no major complications apparent
[2025-04-07] MEDS: ACETAMINOPHEN 325 MG TAB PO PRN (18:51)
[2025-04-07 20:16] VITALS: TEMP 98.2
[2025-04-07] MEDS: PRAVASTATIN SOD 20 MG TAB PO SCH (20:57)
[2025-04-07] MEDS: cefTRIAXone SODIUM 2,000 MG/50 ML BAG IV SCH (21:26)
[2025-04-08 06:36] LABS: Hematocrit (blood only) 33.4 % (37.0-47.0); Hemoglobin 11.2 g/dl (12.0-16.0); Immature Granulocytes # (auto) 0.05 K/uL (0.01-0.20); Immature Granulocytes % (auto) 0.5 %; Mean Corpuscular Hemoglobin 28.6 pg (25.0-34.0); Mean Corpuscular Volume 85.2 fL (80.0-100.0); Platelet Count 210 K/uL (130-400); RDW Standard Deviation 40.0 fL (36.4-46.3); Red Blood Count 3.92 M/uL (4.20-5.40); White Blood Count 10.26 K/ul (4.8-10.8)
[2025-04-08 06:52] LABS: Anion Gap 6.0 (3-11); Blood Urea Nitrogen 10.0 mg/dl (6-23); Calcium 8.7 mg/dl (8.6-10.3); Carbon Dioxide 27.0 mmol/L (21-32); Chloride 107.0 mmol/L (98-107); Creatinine Clr Calc Pharmacy 98.4 ml/min; Glucose 105.0 mg/dl (70-99(Fasting)); Magnesium 1.7 mg/dl (1.7-2.4); Potassium 3.9 mmol/L (3.5-5.1); Sodium 140.0 mmol/L (136-145)
[2025-04-08 07:14] VITALS: BP 98/59; PULSE 83; RESP 16; O2SAT 98
--- NOTE | 2025-04-08 07:30 | Urology Progress Note ---
Date of Service April 08, 2025 Assessment & Plan (1) Ureteral stone: (2) Calculus of kidney: Plan: Patient seen by Dr. Puente this morning. Doing well this morning POD 1 fromCystoscopy, Right Stent Placement, Ureteroscopy, Laser Lithotripsy Stone Treatment(Right) Activity as tolerated Plan to remove stent today. Okay to discharge from urology standpoint. Recommend nephrology evaluation as outpatient. 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 She can schedule this locally or in [place] where she will be moving. Recommend urology follow up in approx 1 year. Admission and Anticipated Discharge Date Admission Date: April 06, 2025 Subjective 25 year old patient POD 1 from Cystoscopy, Right Stent Placement, Ureteroscopy, Laser Lithotripsy Stone Treatment(Right), with Dr. Puente. She is doing fairly well this morning. Pain is manageable with tylenol. Had some hematuria initially. No other complaints. Physical Exam Physical Exam: alert and oriented. NAD. VSS. Creatinine 0.68, hgb 11.2 Sitting up in bed. Respiratory effort normal. Results & Data Vital Signs (Past 12 Hours) Vital Signs Temp Pulse Resp BP Pulse Ox O2 Del Method 04/08/25 07:12 36.8 C 83 16 98/59 L 98 Room Air 04/07/25 20:15 36.8 C 77 12 103/69 99 Room Air PG Care Time/CCT Total # of Minutes Spent Total Time Spent with Patient: Total time spent is greater than 50% in coordination of care (as documented) at patient's floor/unit and/or counseling patient: Coding Level of Care Code 82000 SUB INP/OBS CARE 2/35MIN Diagnoses Ureteral stone N20.1 Calculus of kidney N20.0
--- NOTE | 2025-04-08 09:07 | Hospitalist Progress Note ---
Date of Service April 08, 2025 Assessment & Plan (1) Ureteral stone: (2) Hydronephrosis: (3) Flank Pain: Plan: Patient is a 25-year-old female with PMH HLD, nonrheumatic mitral regurgitation presented to ER with complaint of right flank, right groin pain. Seen in ER earlier this morning dx with ureteral calculus and dchome on pain medicine and antiemetics. Patient returns this evening secondary to uncontrolled pain, nausea and vomiting. Obstructive uropathy--POA Ureteral stone Nephrolithiasis Renal cysts --CT ABD:Multiple patchy hyperdense areas are noted involving left renal cortex -new finding - possibulity of hemorrhgic or proteinaceous cysts. Ultrasound / contrast study / MRI correlation is suggested for better evaluation. Right side hydronephroureterosis. About 4 mm size radio opacity is noted along the course of right distal ureter- possibility right lower ureteric obstructive calculus- contrast urography correlation suggested.-new finding. Right kidney shows few 2- 3 mm sized calculi are noted in mid and lower calyx.-new finding. --Renal USD:Right renal mild hydronephrosis and hydroureter. Obstructive uropathy. Right renal parenchymal disease. The Mid and distal right ureter are not visualized due to overlying bowel gases. Left renal cortical cysts. --S/P Cystoscopy, Right Stent Placement, Ureteroscopy, Laser Lithotripsy Stone Treatment by Dr. Puente on 04/07/2025 --Urine culture: Pending -- Empirically received IV Rocephin -- Appreciate urology input -- Pain control as needed -- Continue Flomax -- Advised to follow-up with urology as outpatient (4) Mitral valve prolapse: Plan: Outpatient chart review: 12/06/2023 echo: EF: 60-64%, mitral valve chordae are redundant. Mild bileaflet prolapse. Mild mitral regurgitation. Mild tricuspid regurgitation. No evidence of pulmonary hypertension --Follows with [facility] cardiology -- Currently asymptomatic (5) Dyslipidemia: Plan: Continue pravastatin DVT Prophylaxis SCDs CODE STATUS Full code Disposition Home Admission and Anticipated Discharge Date Admission Date: April 06, 2025 Subjective Patient is seen and examined at bedside States having some right flank pain after s ureteral tent removal Also admits to have some hematuria No other complaints Family at bedside Plan to be discharged home today Review of Systems Review of Systems: All systems reviewed & are unremarkable except as noted in Subjective Physical Exam Physical Exam: Physical Exam: Vitals signs as noted above General Appearance:Moderately built and nourished, no apparent distress Head: normocephalic, Atraumatic Eyes: normal inspection, EOMI Neck: supple, Trachea midline Respiratory/Chest: Normal breath sounds, CTA, No accessory muscle use Cardiovascular: S1, S2, No murmur Abdomen/GI:Soft, Non tender, Bowel sounds present Extremities/Musculoskeletal:normal inspection, no edema Neurologic/Psych:AAOX3, grossly no focal neurological deficits Skin: normal color, warm Results & Data Results & Data Vital Signs (Past 12 Hours) Vital Signs Temp Pulse Resp BP Pulse Ox O2 Del Method 04/08/25 07:12 36.8 C 83 16 98/59 L 98 Room Air Laboratory Results Short CBC 04/08/25 Range/Units 05:34 WBC 10.26 (4.8-10.8) K/ul Hgb 11.2 L (12.0-16.0) g/dl Hct 33.4 L (37.0-47.0) % Plt Count 210 (130-400) K/uL BMP 04/08/25 05:34 Sodium 140 Potassium 3.9 Chloride 107 Carbon Dioxide 27 BUN 10 Creatinine 0.68 Glucose 105 H Calcium 8.7 (2) Hydronephrosis Hydronephrosis type: with renal calculous obstruction Qualified Code(s): N13.2 - Hydronephrosis with renal and ureteral calculous obstruction
[2025-04-08] MEDS: cefTRIAXone SODIUM 2,000 MG/50 ML BAG IV SCH (09:36)
[2025-04-08] MEDS: KETOROLAC TROMETHAMINE 15 MG/ML VIAL IV PRN (10:05)
--- NOTE | 2025-04-08 13:41 | Discharge Summary ---
Date of Service April 08, 2025 Admission HPI Per Admitting Provider Patient is a 25-year-old female with PMH HLD, nonrheumatic mitral regurgitation presented to ER with complaint of right flank, right groin pain. Per chart review patient was seen in ER earlier this morning diagnosed with ureteral calculus and discharged home on pain medicine and antiemetics. Patient returns this evening secondary to uncontrolled pain, nausea and vomiting. Denies fever/chills, hematemesis, melena, hematochezia, diarrhea, constipation, FRANK, dizziness, syncope, CP, SOB, cough, paresthesias, weakness, extremity edema, rashes, dysuria, hematuria. Admission Exam Per Admitting Provider General: +mild distress secondary to right flank pain, WDWN Head: normocephalic, atraumatic Eyes: conjunctiva non-injected, anicteric ENT: normal inspection external ears, nose, mucous membranes moist Neck: supple, trachea midline Lungs: clear, no respiratory distress, no wheezing/rhonchi/rales CV: RRR, no murmur, no pretibial edema Abd: normal BS, soft, +right flank tenderness to palpation, otherwise abdomen non-tender Ext: no cyanosis, no calf tenderness Neuro: A&O x 3, no focal deficits noted, normal affect Skin: warm, dry Principal Diagnosis Kidney/ureteral stone Hydronephrosis Renal Cysts Discharge Data Allergies Allergy/AdvReac Type Severity Reaction Status Date / Time nickel AdvReac Intermediate red/itchy Verified 04/07/25 14:47 morphine AdvReac Mild Nausea Verified 04/07/25 14:47 codeine AdvReac Unknown Nausea and Verified 04/07/25 14:47 stomach pain fentanyl AdvReac Unknown Nausea and Verified 04/07/25 14:47 stomach pain Consultations 04/06/25 19:42 ED Decision to Admit Stat 04/06/25 20:17 ED Decision to Admit Stat 04/07/25 07:00 Consult Urology Routine Procedures Performed Operation Date: 04/07/25 12:00 Actual Procedures p Cystoscopy, Ureteroscopy, Laser Lithotripsy Stone Treatment(Right) - David Puente MD s Right Stent Placement,(Right) - David Puente MD Ordered Studies Laboratory Results WBC 10.26 K/ul (4.8-10.8) 04/08/25 05:34 RBC 3.92 M/uL (4.20-5.40) L 04/08/25 05:34 Hgb 11.2 g/dl (12.0-16.0) L 04/08/25 05:34 Hct 33.4 % (37.0-47.0) L 04/08/25 05:34 MCV 85.2 fL (80.0-100.0) 04/08/25 05:34 MCH 28.6 pg (25.0-34.0) 04/08/25 05:34 MCHC 33.5 g/dL (32.0-36.0) 04/08/25 05:34 RDW Std Deviation 40.0 fL (36.4-46.3) 04/08/25 05:34 RDW Coeff of [place] 13.1 % (11.5-14.5) 04/08/25 05:34 Plt Count 210 K/uL (130-400) 04/08/25 05:34 MPV 11.8 fL (9.4-12.4) 04/08/25 05:34 Immature Gran % (Auto) 0.5 % 04/08/25 05:34 Neut % (Auto) 82.7 % 04/08/25 05:34 Lymph % (Auto) 8.6 % 04/08/25 05:34 [place] % (Auto) 7.9 % 04/08/25 05:34 Eos % (Auto) 0.0 % 04/08/25 05:34 Baso % (Auto) 0.3 % 04/08/25 05:34 Neut # (Auto) 8.49 K/uL (1.40-6.50) H 04/08/25 05:34 Lymph # (Auto) 0.88 K/uL (1.20-3.40) L 04/08/25 05:34 [place] # (Auto) 0.81 K/uL (0.11-0.59) H 04/08/25 05:34 Eos # (Auto) 0.00 K/uL (0.00-0.50) 04/08/25 05:34 Baso # (Auto) 0.03 K/uL (0.00-0.20) 04/08/25 05:34 Immature Gran # (Auto) 0.05 K/uL (0.01-0.20) 04/08/25 05:34 Sodium 140 mmol/L (136-145) 04/08/25 05:34 Potassium 3.9 mmol/L (3.5-5.1) 04/08/25 05:34 Chloride 107 mmol/L (98-107) 04/08/25 05:34 Carbon Dioxide 27 mmol/L (21-32) 04/08/25 05:34 Anion Gap 6 (3-11) 04/08/25 05:34 BUN 10 mg/dl (6-23) 04/08/25 05:34 Creatinine 0.68 mg/dl (0.6-1.2) 04/08/25 05:34 Est Cr Clr Drug Dosing 98.4 ml/min 04/08/25 05:34 eGFR 123.87 04/08/25 05:34 BUN/Creatinine Ratio 14.7 (10-20) 04/08/25 05:34 Glucose 105 mg/dl (70-99(Fasting)) H 04/08/25 05:34 Calcium 8.7 mg/dl (8.6-10.3) 04/08/25 05:34 Phosphorus 3.6 mg/dl (2.5-4.9) 04/08/25 05:34 Magnesium 1.7 mg/dl (1.7-2.4) 04/08/25 05:34 Total Bilirubin 0.6 mg/dl (0.2-1.0) 04/06/25 19:12 AST 15 U/L (13-39) 04/06/25 19:12 ALT 11 U/L (7-52) 04/06/25 19:12 Alkaline Phosphatase 45 U/L (34-104) 04/06/25 19:12 Total Protein 6.3 gm/dl (6.0-8.3) 04/06/25 19:12 Albumin 4.0 gm/dl (3.4-5.0) 04/06/25 19:12 Globulin 2.3 gm/dl (2.5-4.0) L 04/06/25 19:12 Albumin/Globulin Ratio 1.7 (0.9-2) 04/06/25 19:12 HCG, Qual Negative (Negative) 04/06/25 19:12 Urine Color Yellow 04/06/25 19:24 Urine Appearance Clear (Clear) 04/06/25 19:24 Urine pH 5.5 (4.5-7.5) 04/06/25 19:24 Ur Specific [place] 1.018 (1.000-1.030) 04/06/25 19:24 Urine Protein Negative (Negative) 04/06/25 19:24 Urine Glucose (UA) Negative (Negative) 04/06/25 19:24 Urine Ketones 3+ (Negative) H 04/06/25 19:24 Urine Blood 2+ (Negative) H 04/06/25 19:24 Urine Nitrite Negative (Negative) 04/06/25 19:24 Urine Bilirubin Negative (Negative) 04/06/25 19:24 Urine Urobilinogen Negative (Negative) 04/06/25 19:24 Ur Leukocyte Esterase Trace (Negative) H 04/06/25 19:24 Urine WBC (Auto) 0-5 /hpf (0-5) 04/06/25 19:24 Urine RBC (Auto) 11-20 /hpf (0-2) H 04/06/25 19:24 U Hyaline Cast (Auto) 0-2 /lpf (0-2) 04/06/25 19:24 U Epithel Cells (Auto) 0-2 /hpf (0-2) 04/06/25 19:24 Urine Bacteria (Auto) None Seen (None Seen) 04/06/25 19:24 Urine Comment 04/06/25 19:24 Impressions Abdomen Fluoroscopy 04/07/25 13:30 FL KUB CLINICAL HISTORY: RT SIDE STENT PLACEMENT COMPARISON STUDY: CT 04/06/2025 FLUOROSCOPY TIME: 17.8 seconds FLUOROSCOPY IMAGES: 1 EXPOSURE DOSE: 2.41 mGy FINDINGS: Proximal portion of a right ureteral stent appears to be within satisfactory position, distal portion not imaged. IMPRESSION: Fluoroscopic assistance as above. ACT 112: Negative or not required by law. Electronically signed by: Anthony Cantrell M.D. 04/07/2025 3:57 PM Hospital Course (1) Ureteral stone: (2) Hydronephrosis: (3) Flank Pain: Patient is a 25-year-old female with PMH HLD, nonrheumatic mitral regurgitation presented to ER with complaint of right flank, right groin pain. Seen in ER earlier this morning dx with ureteral calculus and dchome on pain medicine and antiemetics. Patient returns this evening secondary to uncontrolled pain, nausea and vomiting. Obstructive uropathy--POA Ureteral stone Nephrolithiasis Renal cysts --CT ABD:Multiple patchy hyperdense areas are noted involving left renal cortex -new finding - possibulity of hemorrhgic or proteinaceous cysts. Ultrasound / contrast study / MRI correlation is suggested for better evaluation. Right side hydronephroureterosis. About 4 mm size radio opacity is noted along the course of right distal ureter- possibility right lower ureteric obstructive calculus- contrast urography correlation suggested.-new finding. Right kidney shows few 2- 3 mm sized calculi are noted in mid and lower calyx.-new finding. --Renal USD:Right renal mild hydronephrosis and hydroureter. Obstructive uropathy. Right renal parenchymal disease. The Mid and distal right ureter are not visualized due to overlying bowel gases. Left renal cortical cysts. --S/P Cystoscopy, Right Stent Placement, Ureteroscopy, Laser Lithotripsy Stone Treatment by Dr. Puente on 04/07/2025 --Urine culture: Pending -- Empirically received IV Rocephin -- Appreciate urology input -- Pain control as needed -- Continue Flomax -- Advised to follow-up with urology as outpatient (4) Mitral valve prolapse: Outpatient chart review: 12/06/2023 echo: EF: 60-64%, mitral valve chordae are redundant. Mild bileaflet prolapse. Mild mitral regurgitation. Mild tricuspid regurgitation. No evidence of pulmonary hypertension --Follows with [facility] cardiology -- Currently asymptomatic (5) Dyslipidemia: Continue pravastatin DVT Prophylaxis SCDs CODE STATUS Full code Disposition Home Total Time Total Time Spent Total Time Spent (In Minutes): 43 minutes Discharge Plan Discharge Items Patient Disposition: Home - Self-Care Reason For Visit: URETER STONE Discharge Diagnosis: Kidney/ureteral stone Hydronephrosis Renal Cysts Condition on Discharge: Fair Activity: Per Instructions section Exercise/Sports: Wait until after follow-up appointment Non-emergency contact: Primary Care Provider and Urologist Call non-emergency contact if: you have any medication questions, your symptoms worsen, your pain is concerning for you and you have a fever Follow-up/Referrals: David Puente MD [Physician] - (THE OFFICE WILL CALL YOU WITH A HOSPITAL FOLLOW UP VISIT.) Jesus Alberto Delgadillo MD [Primary Care Provider] - 04/13/25 11:00 am (Date & Time 04/13/2025 11:00 AM Provider: Jesus Alberto Delgadillo MD General Internal Medicine [facility] ) Diet: Regular Addtl Attending Provider Instructions: Follow-up with your primary care physician Dr. Delgadillo in 1 week Follow-up with the urologist Dr. Puente as recommended --Your final urine culture are pending at the time of discharge. Follow-up with a physician for results. --Complete the antibiotic course as prescribed. Seek immediate medical attention if your symptoms reoccur or worsen Please review medication list provided on discharge for any medication changes as instructed. Please call if you have any questions or problems. You can reach a [facility] hospitalist on duty at [facility] 24 hours a day by calling [phone] Pending Studies at Discharge: Yes Studies:: Urine Culture Stand-Alone Forms: My [facility] [address], Pain - Opioid Pain Management, Smoking Cessation Medications and DC Order Prescriptions: New cefuroxime axetil 500 mg tablet 500 mg PO BID Qty: 6 0RF Continued pravastatin 20 mg tablet 20 mg PO HS oxycodone 5 mg tablet 5 mg PO Q6H PRN (Reason: pain) Qty: 12 0RF ondansetron 4 mg tablet,disintegrating 4 mg PO Q8H PRN (Reason: nausea and vomiting) 5 Days Qty: 15 0RF tamsulosin [Flomax] 0.4 mg capsule 0.4 mg PO DAILY Qty: 14 0RF fluticasone propionate [Flonase Allergy Relief] 50 mcg/actuation [place],Suspension 2 spray INTRANASAL DAILY PRN (Reason: allergies) Discharge Orders: Discharge Order (Routine); Ordered 04/08/25 Ordered By: David Middleton/Other Patient Handouts: Preventing Deep Vein Thrombosis Admission Data Admit Date/Time: 04/06/25 20:24 Attending Provider: David Page Admit Provider: Eris Baker Primary Care Provider: Jesus Alberto Delgadillo Other Providers: Caio Molina; Eris Baker; Cindi,Christopher T. Other Interventions: Discharge Summary Assessment (RN) Last Done: 04/08/25 10:15
== END 2025-04-08 11:00 | disposition home or self-care (01) | DRG 661 ==
LOC: ED 18:49 → 3W 20:24 → SUATTDRO 20:24 → 3W 22:00